=== PATIENT | female | born 1980 | race African-American/Black ===

== ENCOUNTER 2024-07-20 10:44 | Emergency (ER) | payer OTHER ==
[~2024-07-20] VITALS: Ht 172.7 cm; Wt 99.0 kg
[2024-07-20 10:47] VITALS: O2SAT 99
[2024-07-20] MEDS: DEXAMETHASONE 10 MG/ML VIAL PO ONE (11:26)
[2024-07-20 12:30] VITALS: BP 125/74; PULSE 78; RESP 18; TEMP 36.8; O2SAT 100
== END 2024-07-20 12:31 | disposition home or self-care (01) ==
LOC: ER 10:44
DX: R09.89 Other specified symptoms and signs involving the circulatory and respiratory systems (principal); R05.9 Cough, unspecified; R06.02 Shortness of breath; Z79.52 Long term (current) use of systemic steroids
CPT/HCPCS: 99283; 71045; 81025; J1100

== ENCOUNTER 2024-09-01 11:50 | Emergency (ER) | payer OTHER ==
[~2024-09-01] VITALS: Ht 170.2 cm; Wt 85.0 kg
[2024-09-01 12:06] VITALS: O2SAT 100
[2024-09-01] MEDS: ACETAMINOPHEN 325MG TABLET PO ONE (12:21)
[2024-09-01] MEDS: BACITRACIN ZINC OINT UDPKT TOP ONE (14:32)
[2024-09-01 14:35] VITALS: BP 113/59; PULSE 63; RESP 18; TEMP 36.9; O2SAT 100
== END 2024-09-01 14:39 | disposition home or self-care (01) ==
LOC: ER 11:50
DX: S62.002A Unspecified fracture of navicular [scaphoid] bone of left wrist, initial encounter for closed fracture (principal); V43.52XA Car driver injured in collision with other type car in traffic accident, initial encounter; Y93.89 Activity, other specified; Y92.89 Other specified places as the place of occurrence of the external cause; Y99.8 Other external cause status
CPT/HCPCS: 29125; 73110; 99283